=== PATIENT | female | born 1990 | race Caucasian/White ===

== ENCOUNTER → 2018-10-01 09:06 | Outpatient (CLI) | payer OTHER, MEDICAID, SELFPAY ==
--- NOTE | 2018-10-01 | DI.US.S_ITS ---
PROCEDURE: US PELVIC COMPLETE INDICATIONS: PELVIC PAIN/HISTORY OF OVARIAN CYSTS TECHNIQUE: Real-time scanning was performed of the pelvic organs, with image documentation. Additional endovaginal scanning was necessary due to incomplete visualization of the adnexal and endometrial structures by transabdominal scanning. COMPARISON: [facility], , PELVIC COMPLETE, 10/15/2012, 12:30. FINDINGS: Transabdominal scanning: Limited scanning through the kidneys shows no hydronephrosis. No pathologic free abdominal or pelvic fluid. Endovaginal scanning: Uterus: Uterus is normal in size at 8.2 x 5.1 x 5.6 cm. The endometrium measures 6.3 mm in combined thickness. Ovaries: Normal ovaries measuring 2.0 x 3.3 x 2.2 cm on the right and 3.3 x 2.4 x 2.8 cm on the left. No adnexal masses seen. IMPRESSION: No source for pelvic pain identified. Dictated by: Efrain LOBO Interpreted: Tobi Cancino MD on 10/01/2018 at 10:33 Approved by: Tobi Cancino M.D. on 10/01/2018 at 16:36
== END ==
PROVIDERS: Visit Provider Physician Assistant
DX: R10.2 Pelvic and perineal pain (principal)
CPT/HCPCS: 76830; 76856

== ENCOUNTER 2019-07-02 15:41 | Emergency (ER) | payer OTHER, MEDICAID, SELFPAY ==
[2019-07-02 15:50] VITALS: BP 138/84; PULSE 104; RESP 20; TEMP 37.4; O2SAT 100
[2019-07-02 16:37] LABS: Bacteria Urine Few (2-10); Culture Indicated Urine Specimen Cultured; RBC Urine 10-30/HPF (0-5/HPF); Squamous Epithelial Cell Urine 1-5 /HPF (0-5/HPF); Transitional Epi Cells Urine 1-5/HPF (0-5/HPF); WBC Urine 30-100/HPF (0-5/HPF)
--- NOTE | 2019-07-02 16:40 | ED.FEMALEGU ---
HPI - Female Genitourinary General Chief complaint: Urogenital-Female Stated complaint: Kidney infection Time Seen by Provider: 07/02/19 16:38 Source: patient Mode of arrival: ambulatory Limitations: no limitations History of Present Illness HPI Narrative: This is a 29-year-old female who comes in with complaint of kidney infection. Patient states she started having urinary frequency urgency and dysuria as well as a little bit of flank pain. Patient has had not documented fevers but felt warm and sweaty. She has had vomiting or nausea. She has had some loose stools but no black or blood. She denies any vaginal bleeding or discharge. She has noted hematuria. Patient had urine collected on [facility] which was sent for culture. The culture has not resulted but the urine was suspicious for infection. She was given a prescription for ciprofloxacin. She has not started it secondary to concern about allergies although she is not allergic to fluoroquinolones. She has a penicillin, sulfa allergy and the allergy to Macrobid. She describes penicillin allergy as hives and angioedema slip as hives and Macrobid she does not recall exactly. She denies any other major medical issues or surgeries. She has seen a urologist once before, was told she can try azo intermittently. She states that her urine cultures often come back negative. Related Data Allergies Allergy/AdvReac Type Severity Reaction Status Date / Time Penicillins Allergy Unknown Verified 07/02/19 16:24 SULFA (sulfonamide) Allergy Unknown Uncoded 02/06/18 11:56 Review of Systems Review of Systems ROS Unobtainable: All systems reviewed & are unremarkable except as noted in HPI and below PFSH Social History Smoking Status: Current every day smoker Social History Smoking Status: Current every day smoker Exam Narrative Exam Narrative: GENERAL: Alert and oriented x three, well-nourished, well-appearing female in mild distress. HEENT: Head normocephalic, atraumatic, EOMI, pupils reactive, face symmetric, moist mucous membranes NECK: Supple, full range of motion CARDIOVASCULAR: Regular rate and rhythm without murmurs, rubs or gallops. RESPIRATORY: Breath sounds equal bilaterally, no wheezes rales or rhonchi. ABDOMEN: Soft, nontender. Normoactive bowel sounds all 4 quadrants. No guarding or rebound, rigidity, no mass : No CVA tenderness EXTREMITIES: Normal range of motion, no clubbing or edema. Neurovascularly intact NEUROLOGICAL: Cranial nerves II through XII grossly intact. Moving all extremities SKIN: Warm, dry, no petechiae, no rashes or lesions. Initial Vital Signs Initial Vital Signs: Vital Signs Temperature 99.4 F 07/02/19 15:50 Pulse Rate 104 H 07/02/19 15:50 Respiratory Rate 20 07/02/19 15:50 Blood Pressure 138/84 07/02/19 15:50 Pulse Oximetry 100 07/02/19 15:50 Course Orders Ordered: ED Orders 07/02/19 16:25 Urine Culture Stat Urine Microscopic Stat Vital Signs Vital signs: Vital Signs - 8 hr 07/02/19 15:50 07/02/19 18:18 Temperature 99.4 F Pulse Rate 104 H 82 Respiratory Rate 20 16 Blood Pressure 138/84 Blood Pressure [Left Arm] 128/82 Pulse Oximetry 100 99 MDM - Female Genitourinary Lab Data Attestation: I reviewed the patient's lab results. Labs: Lab Results 07/02/19 Range/Units 16:25 Urine RBC 10-30/hpf H (0-5/HPF) Urine WBC 30-100/hpf H (0-5/HPF) Ur Squamous Epith Cells 1-5 /hpf (0-5/HPF) Ur Transition Epith Cell 1-5/hpf (0-5/HPF) Urine Bacteria Few (2-10) H (None) Ur Culture Indicated? Specimen cultured Point of Care Testing Test Results Negative Urine Dip Bedside Urine Glucose Negative Bedside Urine Bilirubin - Negative Bedside Urine Ketone - Negative Urine Specific [place] 1.015 Bedside Urine Occult Blood - Negative Bedside Urine pH 6.0 Bedside Urine Protein +/- 15 Bedside Urine Urobilinogen - Negative Bedside Urine Nitrite - Negative Bedside Urine Leukocytes ++ 125 Esterase MDM Narrative Medical decision making narrative: Discussed with patient we discussed trying cephalexin but with her allergy we discussed there is a very small risk of cross reactivity and her description of angioedema. Patient and I discussed doing a dose of Cipro here will monitor her for an hour does agree on time with the patient that she feels comfortable waiting and patient can follow up with primary care. Cultures pending for us as well. Her primary care sore has not resulted yet. Patient continues to be asymptomatic, d/c home Discharge Plan Departure Patient Disposition: Home Clinical Impression: Urinary tract infection Instructions: DI for Urinary Tract Infection (UTI) Activity Restrictions/Additional Instructions: Follow-up with your primary care physician regarding your urine culture. I would recommend continuing antibiotics you have been prescribed until they are gone. Return to the emergency department for fevers greater than 100.4 F, rapidly worsening symptoms, persistent vomiting, increasing flank or abdominal pain, black or bloody stools or other new or concerning symptoms. Referrals: Lashell Pearl PA-C [Primary Care Provider] -
[2019-07-02 18:18] VITALS: BP 128/82; PULSE 82; RESP 16; O2SAT 99
--- NOTE | 2019-07-02 18:19 | PC.NURSE ---
pt took her antibiotic at 6pm.
[2019-07-02 19:23] VITALS: BP 121/80; PULSE 70; RESP 16; TEMP 36.7; O2SAT 99
== END 2019-07-02 19:23 | disposition home or self-care (01) ==
PROVIDERS: Emergency Provider Emergency Medicine; PCP Physician Assistant
DX: N39.0 Urinary tract infection, site not specified (principal)
CPT/HCPCS: 81003; 81015; 81025; 87086; 99282

== ENCOUNTER 2019-12-24 18:46 | Emergency (ER) | payer OTHER, MEDICAID, SELFPAY ==
[2019-12-24 18:49] VITALS: BP 122/72; PULSE 96; RESP 14; TEMP 36.8; O2SAT 99; BMI 22.6
--- NOTE | 2019-12-24 19:21 | ED_ITS ---
HPI - Recheck/Abnormal Lab/Rx General Chief Complaint: Recheck/Abnormal Lab/Rx Stated Complaint: sent by Ethel for antibiotics Time Seen by Provider: 12/24/19 19:21 Source: patient Mode of arrival: Ambulatory History of Present Illness HPI narrative: 29-year-old woman with no additional significant medical history however multiple allergies to antibiotics. Presented to [facility] earlier today complaining of fevers and chills starting Cristopher with increasing right flank pain and increasing difficulty in feeling that she is voiding completely. No vaginal discharge, no new sexual partners, no hematuria. Slight decreased appetite but she is not having vomiting or diarrhea. At the clinic a urinalysis was apparently done and they told her she had a bladder infection and suggested that she come to the [facility] for a shot of ceftriaxone in a structured environment should she have an allergic reaction. On further questioning I am concerned that she may actually simply have influenza and not need antibiotics at all, she may have a kidney stone she may have pyelonephritis and the longer course of antibiotics and a single dose in the emergency room. Like to do a more thorough evaluation and patient agrees. Related Data Allergies Allergy/AdvReac Type Severity Reaction Status Date / Time Penicillins Allergy Unknown Verified 12/24/19 18:49 amoxicillin Allergy Verified 12/24/19 18:49 clindamycin Allergy Verified 12/24/19 18:49 erythromycin base Allergy Verified 12/24/19 18:49 nitrofurantoin Allergy Verified 12/24/19 18:49 [From Macrobid] SULFA (sulfonamide) Allergy Unknown Uncoded 02/06/18 11:56 Review of Systems Review of Systems Narrative: All systems reviewed and are unremarkable except as noted in HPI and below Patient History Social History Smoking Status: Current every day smoker Smoking Status: Current every day smoker alcohol intake frequency: holidays/special occasions only Substance Use Type: does not use Exam Narrative Exam Narrative: General: Healthy appearing, in no acute distress. Anxious but able to give a complete and coherent history. Well-nourished well-developed HEENT: Moist mucous membranes, normal sclera with reactive pupils, Neck: No JVD, supple Respiratory: Lungs are clear to auscultation, no wheezing no rales no rhonchi. Full and symmetrical air movement Cardiac: Regular rate and rhythm no murmurs no bruits Abdomen: Soft nontender good bowel tones, no rebound or guarding, no suprapubic tenderness mild right-sided flank pain Skin: Warm and dry, no rashes Neurologic: Grossly neurologically intact with no obvious asymmetries or abnormalities Extremities: No trauma, well perfused Psych: Cooperative, appropriate insight and affect Initial Vital Signs Initial Vital Signs: Vital Signs Temperature 98.3 F 12/24/19 18:49 Pulse Rate 96 H 12/24/19 18:49 Respiratory Rate 14 12/24/19 18:49 Blood Pressure 122/72 12/24/19 18:49 Pulse Oximetry 99 12/24/19 18:49 Course Orders Ordered: ED Orders 12/24/19 19:45 Complete Blood Count AUTO DIFF Stat Comprehensive Metabolic Panel Stat Lactate (Lactic Acid) Stat 12/24/19 19:49 Urinalysis and Microscopic Stat 12/24/19 20:06 Blood Culture Stat Discontinued Medications Sodium Chloride (Normal Saline 0.9%) 1,000 mls @ 1,000 mls/hr IV BOLUS ONE Stop: 12/24/19 20:31 Last Infusion: 12/24/19 20:45 Dose: 1,000 mls/hr Documented by: Admin: 12/24/19 19:40 Dose: 1,000 mls/hr Documented by: BENITO Ceftriaxone Sodium/Dextrose (Rocephin) 2 gm in 50 mls @ 100 mls/hr IV NOW ONE Stop: 12/24/19 21:58 Last Infusion: 12/24/19 22:00 Dose: 100 mls/hr Documented by: Admin: 12/24/19 21:33 Dose: 100 mls/hr Documented by: BENITO Ketorolac Tromethamine (Toradol) 15 mg IV NOW ONE Stop: 12/24/19 19:33 Last Admin: 12/24/19 19:50 Dose: 15 mg Documented by: BENITO Vital Signs Vital signs: Vital Signs - 8 hr 12/24/19 18:49 12/24/19 21:45 12/24/19 23:15 Temperature 98.3 F 98.4 F Pulse Rate 96 H 76 72 Respiratory Rate 14 17 17 Blood Pressure 122/72 Blood Pressure [Left Arm] 106/56 L 116/75 Pulse Oximetry 99 98 100 MDM - Recheck/Abnormal Lab/Rx Medical Records Attestation: I reviewed the patient's medical records. Lab Data Attestation: I reviewed the patient's lab results. Result diagrams: 12/24/19 19:45 12/24/19 19:45 Labs: Lab Results 12/24/19 12/24/19 12/24/19 Range/Units 19:45 19:45 19:45 WBC 7.4 (4.5-11.0) X10^3/uL RBC 3.91 L (4.0-5.2) X10^6/uL Hgb 11.8 L (12.0-16.0) g/dL Hct 34.3 L (36-46) % MCV 87.8 (80-100) fL MCH 30.3 (26-34) PG MCHC 34.5 (30-36) % RDW 12.8 (11.6-14.8) % Plt Count 393 (150-400) X10^3/uL Neut % (Auto) 61.1 (50-75) % Lymph % (Auto) 26.2 (25-40) % [place] % (Auto) 9.6 (3-14) % Eos % (Auto) 2.3 (2-4) % Baso % (Auto) 0.8 (0-2) % Neut # (Auto) 4500 (8745-4101) /uL Lymph # (Auto) 1900 (8208-3171) /uL [place] # (Auto) 700 (0-900) /uL Eos # (Auto) 200 (0-450) /uL Baso # (Auto) 100 (0-100) /uL Sodium 140 (137-145) mmol/L Potassium 3.2 L (3.4-5.1) mmol/L Chloride 101 (98-107) mmol/L Carbon Dioxide 28 (22-32) mmol/L BUN 10 (7-17) mg/dL Creatinine 0.60 (0.52-1.04) mg/dL Estimated GFR > 60.0 (>60) mL/min BUN/Creatinine Ratio 16.7 (6-22) Glucose 130 H (70-100) mg/dL Lactate 1.6 (0.7-2.1) mmol/L Calcium 9.7 (8.4-10.2) mg/dL Total Bilirubin 0.2 (0.2-1.3) mg/dL AST 28 (14-36) IU/L ALT 37 H (<35) IU/L Alkaline Phosphatase 71 (38-126) U/L Total Protein 8.0 (6.3-8.2) g/dL Albumin 4.2 (3.5-5.0) g/dL Globulin 3.8 (1.7-4.1) g/dL Albumin/Globulin Ratio 1.1 (1.0-2.8) Urine Color Urine Appearance Urine pH (4.5-8.0) Ur Specific [place] (1.000-1.035) Urine Protein (Negative) Urine Glucose (UA) (Negative) g/dL Urine Ketones (NEGATIVE) Urine Occult Blood (Negative) Urine Nitrate (Negative) Urine Bilirubin (NEGATIVE) Urine Urobilinogen (0.2) E.U./dL Ur Leukocyte Esterase (NEGATIVE) Urine RBC (0-5/HPF) Urine WBC (0-5/HPF) Ur Squamous Epith Cells (0-5/HPF) Urine Bacteria (None) Ur Culture Indicated? 12/24/19 Range/Units 19:49 WBC (4.5-11.0) X10^3/uL RBC (4.0-5.2) X10^6/uL Hgb (12.0-16.0) g/dL Hct (36-46) % MCV (80-100) fL MCH (26-34) PG MCHC (30-36) % RDW (11.6-14.8) % Plt Count (150-400) X10^3/uL Neut % (Auto) (50-75) % Lymph % (Auto) (25-40) % [place] % (Auto) (3-14) % Eos % (Auto) (2-4) % Baso % (Auto) (0-2) % Neut # (Auto) (4489-7040) /uL Lymph # (Auto) (5201-1654) /uL [place] # (Auto) (0-900) /uL Eos # (Auto) (0-450) /uL Baso # (Auto) (0-100) /uL Sodium (137-145) mmol/L Potassium (3.4-5.1) mmol/L Chloride (98-107) mmol/L Carbon Dioxide (22-32) mmol/L BUN (7-17) mg/dL Creatinine (0.52-1.04) mg/dL Estimated GFR (>60) mL/min BUN/Creatinine Ratio (6-22) Glucose (70-100) mg/dL Lactate (0.7-2.1) mmol/L Calcium (8.4-10.2) mg/dL Total Bilirubin (0.2-1.3) mg/dL AST (14-36) IU/L ALT (<35) IU/L Alkaline Phosphatase (38-126) U/L Total Protein (6.3-8.2) g/dL Albumin (3.5-5.0) g/dL Globulin (1.7-4.1) g/dL Albumin/Globulin Ratio (1.0-2.8) Urine Color Yellow Urine Appearance Sl cloudy Urine pH 5.5 (4.5-8.0) Ur Specific [place] 1.015 (1.000-1.035) Urine Protein Negative (Negative) Urine Glucose (UA) Negative (Negative) g/dL Urine Ketones Negative (NEGATIVE) Urine Occult Blood 1+ H (Negative) Urine Nitrate Positive H (Negative) Urine Bilirubin Negative (NEGATIVE) Urine Urobilinogen 0.2 (0.2) E.U./dL Ur Leukocyte Esterase 2+ H (NEGATIVE) Urine RBC 5-10/hpf H (0-5/HPF) Urine WBC 10-30/hpf H (0-5/HPF) Ur Squamous Epith Cells 5-10 /hpf H (0-5/HPF) Urine Bacteria Many (>30) H (None) Ur Culture Indicated? Cult not indicated MDM Narrative Medical decision making narrative: No signs of severe systemic infection. Will give her a dose of oral potassium for the slightly low potassium. Urine does in fact look like a UTI. Will treat with 2 g of IV ceftriaxone and monitor for at least an hour after treatment make sure she has no adverse effects from the antibiotics. Discharge Plan Departure Patient Disposition: Home Clinical Impression: UTI (urinary tract infection) Qualifiers: Urinary tract infection type: site unspecified Hematuria presence: with hematuria Qualified Code(s): N39.0 - Urinary tract infection, site not specified Instructions: DI for Urinary Tract Infection (UTI) Activity Restrictions/Additional Instructions: Thank you for coming in today Your symptoms and presentation were concerning. Your blood tests were quite reassuring. There is no evidence of systemic (body wide) infection, kidney problems or electrolyte abnormalities. You did receive 2 g of IV ceftriaxone and antibiotic in the cephalosporin family to treat what does look like of bladder infection. We were able to observe you for an hour after the antibiotic has infused and we did not see any signs or symptoms of an allergic reaction. Typically this single dose of antibiotic will be effective in treating an uncomplicated bladder infection. We will culture your urine and you will be contacted there are additional findings. I hope you feel better soon Referrals: Lashell Pearl PA-C [Primary Care Provider] -
[2019-12-24] MEDS: SODIUM CHLORIDE 0.9% 1,000 ML 1000 ML IV (19:40)
[2019-12-24] MEDS: KETOROLAC 60 MG/2 ML VIAL 15 MG IV (19:50)
[2019-12-24 19:57] LABS: Add Manual Diff / Slide Review NO; Basophils Absolute Auto 100 /uL (0-100); Basophils Percent Auto 0.8 % (0-2); Eosinophils Absolute Auto 200 /uL (0-450); Eosinophils Percent Auto 2.3 % (2-4); Hematocrit 34.3 % (36-46); Hemoglobin 11.8 g/dL (12.0-16.0); Lymphocytes Absolute Auto 1900 /uL (1100-4500); Lymphocytes Percent Auto 26.2 % (25-40); Mean Corpuscular HGB Conc 34.5 % (30-36); Mean Corpuscular Hemoglobin 30.3 PG (26-34); Mean Corpuscular Volume 87.8 fL (80-100); Monocytes Absolute Auto 700 /uL (0-900); Monocytes Percent Auto 9.6 % (3-14); Neutrophils Absolute Auto 4500 /uL (1500-7000); Neutrophils Percent Auto 61.1 % (50-75); Platelet Count 393 X10^3/uL (150-400); Red Blood Cell Count 3.91 X10^6/uL (4.0-5.2); Red Cell Distribution Width 12.8 % (11.6-14.8); White Blood Cell Count 7.4 X10^3/uL (4.5-11.0)
[2019-12-24 20:01] LABS: Appearance Urine UA SL CLOUDY; Bilirubin Urine UA NEGATIVE (NEGATIVE); Color Urine UA YELLOW; Glucose Urine UA NEGATIVE (Negative); Ketones Urine UA NEGATIVE (NEGATIVE); Leukocyte Esterase Urine UA 2+ (NEGATIVE); Nitrite Urine UA POSITIVE (Negative); Occult Blood Urine UA 1+ (Negative); Protein Urine UA NEGATIVE (Negative); Specific Gravity Urine UA 1.015 (1.000-1.035); Urobilinogen Urine UA 0.2 E.U./dL (0.2)
[2019-12-24 20:03] LABS: pH Urine UA 5.5 (4.5-8.0)
[2019-12-24 20:06] LABS: Bacteria Urine Many (>30); RBC Urine 5-10/HPF (0-5/HPF); Squamous Epithelial Cell Urine 5-10 /HPF (0-5/HPF); WBC Urine 10-30/HPF (0-5/HPF)
[2019-12-24 20:07] LABS: Culture Indicated Urine Cult Not Indicated
[2019-12-24 20:09] LABS: Alanine Aminotransferase 37 IU/L (<35); Albumin 4.2 g/dL (3.5-5.0); Albumin Globulin Ratio 1.1 (1.0-2.8); Alkaline Phosphatase 71 U/L (38-126); Aspartate Aminotransferase 28 IU/L (14-36); BUN Creatinine Ratio 16.7 (6-22); Bilirubin Total 0.2 mg/dL (0.2-1.3); Blood Urea Nitrogen 10 mg/dL (7-17); Calcium 9.7 mg/dL (8.4-10.2); Carbon Dioxide 28 mmol/L (22-32); Chloride 101 mmol/L (98-107); Estimated Glomerular Filt Rate > 60.0 mL/min (>60); Globulin 3.8 g/dL (1.7-4.1); Glucose 130 mg/dL (70-100); HEMOLYSIS < 15 (0-50); Lactate (Lactic Acid) 1.6 mmol/L (0.7-2.1); Potassium 3.2 mmol/L (3.4-5.1); Sodium 140 mmol/L (137-145)
[2019-12-24] MEDS: CEFTRIAXONE 2 GM/50 ML FROZ.PIGGY IV (21:33)
[2019-12-24 21:45] VITALS: BP 106/56; PULSE 76; RESP 17; TEMP 36.9; O2SAT 98
[2019-12-24 23:15] VITALS: BP 116/75; PULSE 72; RESP 17; O2SAT 100
--- NOTE | 2019-12-24 23:15 | PC.NURSE ---
Pt [employer] light upset stating to [employer] she needs to leave immediately to find her ride that was suppose to be here. PT was updated that staff in ER is not aware of any ride or visitor that has requested for pt since her arrival. Dr dick and printing DC paperwork for pt.
== END 2019-12-24 23:18 | disposition home or self-care (01) ==
PROVIDERS: Emergency Provider Emergency Medicine; PCP Physician Assistant
DX: N39.0 Urinary tract infection, site not specified (principal)
CPT/HCPCS: 36415; 80053; 81001; 83605; 85025; 87040; 96361; 96365; 96375; 99284; J0696; J1885

== ENCOUNTER 2021-05-11 22:37 | Emergency (ER) | payer OTHER, MEDICAID, SELFPAY ==
[2021-05-11 22:53] VITALS: BMI 23.3
--- NOTE | 2021-05-11 23:06 | ED_ITS ---
HPI - General Chief complaint: OB/Uterine Contractions Stated complaint: possible miscarriage Time Seen by Provider: 05/11/21 22:53 Source: patient Mode of arrival: Ambulatory Limitations: no limitations History of Present Illness HPI Narrative: 31-year-old female daily smoker is a at 12 weeks and pre sents at the request of her [facility] due to a day or 2 of mild vaginal spotting. She is known to be Rh negative and will need a RhoGAM shot. She has minimal lower cramping but no significant pain. She does not have an OB provider. She is not dizzy nor weak or lightheaded. She denies any chest pain or shortness of breath. She denies dysuria, frequency or urgency Related Data Allergies Allergy/AdvReac Type Severity Reaction Status Date / Time Penicillins Allergy Unknown Verified 05/11/21 22:53 amoxicillin Allergy Verified 05/11/21 22:53 clindamycin Allergy Verified 05/11/21 22:53 erythromycin base Allergy Verified 05/11/21 22:53 nitrofurantoin Allergy Verified 05/11/21 22:53 [From Macrobid] SULFA (sulfonamide) Allergy Unknown Uncoded 05/11/21 22:53 Review of Systems Review of Systems Narrative: GENERAL: Denies chills, fatigue, malaise, fever, sweats. HEENT: Denies sinus pain, ear pain, sore throat, difficulty swallowing, dizziness. RESPIRATORY: Denies dyspnea, cough, wheezing, hemoptysis, sputum. CARDIOVASCULAR: Denies chest pain, palpitations, orthopnea, edema, GASTROINTESTINAL: See HPI : Denies dysuria, frequency, incontinence, hematuria, urinary retention. MUSCULOSKELETAL: denies weakness, joint pain, or bony pain SKIN: Denies rash, skin lesions, or other NEUROLOGIC: Denies weakness, headache, numbness, change in speech, confusion, seizures, incoordination. PSYCHIATRIC: No concerning psychosocial issues. 12 point review of systems is negative except for those stated above Exam Narrative Exam Narrative: GEN: AOx3 and in mild distress EYES: Pupils are equal, round, and reactive to light and accommodation. Extraoccular muscles are intact bilaterally. There is no subconjunctival hemorrhage or exudate. CHEST: Lungs are clear to auscultation bilaterally and free of wheezes, rales, or rhonchi. Heart rate is regular rhythm, there are no murmurs, clicks, rubs, or gallops. There is no chest wall tenderness. ABD: Abdomen is soft and nontender. There is no guarding or rebound. Bowel sounds are normal in all 4 quadrants. There is no mass or organomegaly. EXT: Full painless ROM of all extremities with no loss of sensation or strength. SKIN: Warm, pink, and dry. No erythema or rash Initial Vital Signs Initial Vital Signs: Vital Signs Pulse Rate 82 05/12/21 01:48 Respiratory Rate 20 05/12/21 01:48 Blood Pressure 109/66 05/12/21 01:48 Pulse Oximetry 100 05/12/21 01:48 Course Orders Ordered: ED Orders 05/11/21 23:07 US OB <= 14 weeks fetus Stat 05/11/21 23:10 ABO RH Type Stat HCG Quantitative /Beta subunit Stat Hemoglobin and Hematocrit Stat Discontinued Medications Rho Immune Globulin (Rho(D) Immune Globulin 1,500 Unit Syringe) 1,500 unit IM NOW ONE Stop: 05/12/21 00:25 Last Admin: 05/12/21 01:13 Dose: 1,500 unit Documented by: JYOTI Vital Signs Vital signs: Vital Signs - 8 hr 05/12/21 01:48 Pulse Rate 82 Respiratory Rate 20 Blood Pressure 109/66 Pulse Oximetry 100 MDM - OB/Uterine Contractions Lab Data Result diagrams: 05/11/21 23:10 Labs: Lab Results 05/11/21 05/11/21 05/11/21 Range/Units 23:10 23:10 23:10 Hgb 12.0 (12.0-16.0) g/dL Hct 35.8 L (36-46) % HCG, Quant 32550 mIU/mL Blood Type A Negative Urine Dip Bedside Urine Glucose Negative Bedside Urine Bilirubin - Negative Bedside Urine Ketone - Negative Urine Specific [place] 1.025 Bedside Urine Occult Blood + Bedside Urine pH 6.0 Bedside Urine Protein - Negative Bedside Urine Urobilinogen - Negative Bedside Urine Nitrite - Negative Bedside Urine Leukocytes - Negative Esterase Imaging Data US - OB: Radiologist's Impression: Single live IUP at 12 weeks and 5 days. Cardiac activity at 155 beats per minute. Normal posterior placenta. MDM Narrative Medical decision making narrative: Patient with minimal bleeding and mild cramping with stable vital signs in very reassuring physical exam. Ultrasound notes intrauterine with heart rate in the 150s. Patient is Rh negative and has been given RhoGAM. She is given return precautions and had questions answered to her apparent satisfaction Discharge Plan Departure Patient Disposition: Home Clinical Impression: Vaginal bleeding in Instructions: Threatened Miscarriage Activity Restrictions/Additional Instructions: *You have been diagnosed with [vaginal bleeding, RhoGAM administration and reas suring ultrasound.] *What to do: *Please continue to take your regular medications as directed. [ ] New medication prescriptions sent to your pharmacy: [ ] [ ] New medication written as a paper prescription [x ] No new medications given *Please follow up with your primary care provider in 2-3 days, call for an appointment. Let them know you were seen in the Emergency Department and that we ask that you be seen in follow up. We will electronically transmit a record of today's note if your PCP is in our system *If you do not have a primary care provider please contact the [facility] Resource line at [phone]. They will ask some questions about your medical history and help get you set up with a doctor in the community. *Return to Emergency Department if you should have any new, worsening or concerning symptoms, such as [fever greater than 101 F, shaking chills, worsening pain, persistent vomiting or other bothersome symptoms] Referrals: Adelaide Potter MD [Physician] - Lashell Pearl PA-C [Primary Care Provider] -
--- NOTE | 2021-05-11 23:07 | DI.US.S_ITS ---
PROCEDURE: US OB <= 14 WEEKS FETUS INDICATIONS: BLEEDING OUTSIDE/PRIOR DATING DATA: Last menstrual period (LMP): February 14, 2021 LMP-based estimated date of delivery (SEN): November 21, 2021 First dating scan (date and location): May 11, 2021 Estimated date of delivery (SEN) from first dating scan: November 18, 2021 TECHNIQUE: Real-time scanning was performed of the fetus and maternal pelvic organs, with image documentation. Endovaginal scanning was also performed to better visualize the fetus and maternal ovaries. COMPARISON: None. FINDINGS: Embryo: Single living intrauterine identified. pole identified. [place]-rump length measures 6.4 centimeters corresponding to ultrasound estimated gestational age of 12 weeks 5 days. Heart rate: 155 beats per minute. Measurement variability in dating: +/- 4 weeks by LMP, +/- 7 days by mean sac diameter (use before 6 weeks gestation if crown-rump length not able to be measured), +/- 5 days by crown-rump length (up to 8 weeks 6 days gestation), +/- 7 days by crown-rump length (up to 13 weeks 6 days gestation). Maternal organs: Ovaries not identified and cannot be evaluated.. IMPRESSION: Single living intrauterine gestation with ultrasound estimated gestational age of 12 weeks 5 days corresponding to ultrasound SEN of November 18, 2021. Dictated by: Sarah Campa MD, PhD on 05/12/2021 at 8:29 Approved by: Sarah Campa MD, PhD on 05/12/2021 at 8:30
[2021-05-11 23:24] LABS: Hematocrit 35.8 % (36-46)
[2021-05-12 00:15] LABS: HCG Quantitative /Beta subunit 20422 mIU/mL
[2021-05-12] MEDS: RHO(D) IMMUNE GLOBULIN 1,500 UNIT SYRINGE 1500 UNIT IM (01:13)
[2021-05-12 01:48] VITALS: BP 109/66; PULSE 82; RESP 20; O2SAT 100
== END 2021-05-12 01:54 | disposition home or self-care (01) ==
PROVIDERS: Emergency Provider Emergency Medicine; PCP Physician Assistant
DX: O46.91 Antepartum hemorrhage, unspecified, first trimester (principal); Z3A.12 12 weeks gestation of pregnancy
CPT/HCPCS: 76801; 81003; 84702; 85014; 85018; 86900; 86901; 96372; 99283; 99284; J2790

== ENCOUNTER → 2021-05-30 09:03 | Outpatient (CLI) | payer OTHER, MEDICAID, SELFPAY ==
[2021-05-30 10:06] LABS: Appearance Urine UA CLEAR; Bilirubin Urine UA NEGATIVE (NEGATIVE); Color Urine UA YELLOW; Glucose Urine UA NEGATIVE (Negative); Ketones Urine UA NEGATIVE (NEGATIVE); Leukocyte Esterase Urine UA NEGATIVE (NEGATIVE); Nitrite Urine UA NEGATIVE (Negative); Occult Blood Urine UA TRACE-INTACT (Negative); Protein Urine UA NEGATIVE (Negative); Urobilinogen Urine UA 0.2 E.U./dL (0.2)
[2021-05-30 10:12] LABS: Add Manual Diff / Slide Review NO; Basophils Absolute Auto 100 /uL (0-100); Basophils Percent Auto 0.4 % (0-2); Eosinophils Absolute Auto 200 /uL (0-450); Eosinophils Percent Auto 1.5 % (2-4); Hematocrit 36.9 % (36-46); Hemoglobin 12.5 g/dL (12.0-16.0); Lymphocytes Absolute Auto 2600 /uL (1100-4500); Lymphocytes Percent Auto 18.3 % (25-40); Mean Corpuscular HGB Conc 33.8 % (30-36); Mean Corpuscular Volume 88.7 fL (80-100); Monocytes Absolute Auto 900 /uL (0-900); Monocytes Percent Auto 6.3 % (3-14); Neutrophils Absolute Auto 10500 /uL (1500-7000); Neutrophils Percent Auto 73.5 % (50-75); Platelet Count 297 X10^3/uL (150-400); Red Blood Cell Count 4.16 X10^6/uL (4.0-5.2); Red Cell Distribution Width 13.4 % (11.6-14.8); White Blood Cell Count 14.4 X10^3/uL (4.5-11.0)
[2021-05-30 16:40] LABS: Hepatitis B Surface Antigen NEGATIVE s/c (NEGATIVE); Rubella Antibody IgG 16.9 IU/mL (>15)
[2021-05-30 16:59] LABS: HIV 1 & 2 Ab/Ag 4th Gen Combo NEGATIVE (NEGATIVE); Hep C Virus Ab w/Reflex Quant NEGATIVE s/c (NEGATIVE)
[2021-05-31 05:37] LABS: RPR Screen Non Reactive (Non Reactive)
[2021-05-31 12:46] LABS: Varicella IgG Antibody 1322 index (Immune >165)
== END ==
PROVIDERS: PCP Physician Assistant; Referring Provider Obstetrics & Gynecology; Visit Provider Obstetrics & Gynecology
DX: Z34.82 Encounter for supervision of other normal pregnancy, second trimester (principal)
CPT/HCPCS: 36415; 80055; 81003; 86787; 86803; 86850; 86870; 86900; 86901; 87077; 87086; 87186; 87389

== ENCOUNTER → 2021-06-06 10:04 | Outpatient (CLI) | payer OTHER, MEDICAID, SELFPAY ==
[2021-06-09 20:49] LABS: AFP, Serum 46.9 ng/mL (.); Inhibin A, Dimeric 159.92 pg/mL (.); Inhibin A, MoM 1.01 (.); Maternal Ethnicity Caucasian (.); Maternal Weight 151 lbs (.); Number of Fetuses No (.); OSBR Risk 1 IN 3920 (.); Results Report (.); Test Results *Screen Negative* (.); hCG, MoM 0.25 (.); hCG, Serum 10134 mIU/mL (.)
== END ==
PROVIDERS: PCP Physician Assistant; Visit Provider Obstetrics & Gynecology
DX: Z34.82 Encounter for supervision of other normal pregnancy, second trimester (principal); Z3A.16 16 weeks gestation of pregnancy
CPT/HCPCS: 82105; 82677; 84702; 86336

== ENCOUNTER → 2021-07-25 12:51 | Outpatient (CLI) | payer OTHER, MEDICAID, SELFPAY ==
--- NOTE | 2021-07-25 12:52 | DI.US.S_ITS ---
PROCEDURE: US OB >= 14 WEEKS FETUS INDICATIONS: ANATOMY OUTSIDE/PRIOR DATING DATA: Last menstrual period (LMP): 02/14/2021. LMP-based estimated date of delivery (SEN): 11/21/2021. First dating scan (date and location): 05/11/2021. Estimated date of delivery (SEN) from first dating scan: 11/18/2021. TECHNIQUE: Real-time scanning was performed of the fetus, with image documentation and biometric measurements. E COMPARISON: [facility], , OB >= 14 WEEKS FETUS, 06/27/2021, 15:48. FINDINGS: General: A single living intrauterine gestation is present. Presentation: Vertex Placenta: Placental position is posterior, without previa. Amniotic fluid index: 5.9 cm, normal range is 5-24 cm. heart rate: 152 beats per minute. Maternal cervical canal: 3.6 cm long. Normal lower limit is 2.5 cm. biometrics: Biparietal diameter: 5.3 cm, 22 weeks, 5 days Head circumference: 20.8 cm, 22 weeks, 6 days Abdominal circumference: 18.1 cm, 23 weeks, 0 day Femur length: 4.2 cm, 23 weeks, 6 days Estimated gestational age from initial scan: 23 weeks, 3 days Composite gestational age from present scan: 23 weeks, 1 day Estimated weight and percentile: 580 grams, 35 percent Measurement variability for biometric dating: +/- 7 days from 14 weeks to 15 weeks 6 days gestation, +/- 10 days from 16 weeks to 21 weeks 6 days gestation, +/- 2 weeks from 22 weeks to 27 weeks 6 days gestation, +/- 3 weeks for 28 weeks gestation or later. weight reference: 4500 g or EFW >90/95% is considered macrosomia or large for gestational age. EFW <10% is small for gestational age. EFW 5% or less is considered intra-uterine growth restriction. Anatomic survey: Neuro: Ventricles and choroid plexus are not well seen. Cerebellum is normal in size and morphology. Nuchal skin fold: Normal at less than 6 mm between 14-21 weeks gestational age. Face: Nose and lips, facial profile are not well seen. Spine: Not well seen. Heart: 4-chambered heart is present, with normal ventricular outflow tracts. Diaphragm: Diaphragm is intact. Stomach: Left-sided stomach is present. Kidneys: Mild prominence of left renal pelvis is seen measures 4.3 mm in diameter. No right-sided hydronephrosis. Normal is less than 5 mm in 2nd trimester, less than 7 mm in 3rd trimester. Cord: 3-vessel cord has orthotopic insertion. Bladder: Normal in size. Extremities: All 4 extremities identified. IMPRESSION: 1. Single live intrauterine with fetus in vertex presentation. heart rate is 152 beats per minute. 2. Amniotic fluid index is near the lower limits of normal at 5.9 cm. Estimated weight is at 35 percent. 3. Ventricles and choroid plexus are not well seen. Facial profile is not well seen. spine is not well seen. 4. Slight prominence of left renal pelvis as above which is still within the normal limits. No right-sided hydronephrosis. Dictated by: Pavel Zheng M.D. on 07/26/2021 at 13:53 Approved by: Pavel Zheng M.D. on 07/26/2021 at 13:56
== END ==
PROVIDERS: PCP Physician Assistant; Referring Provider Obstetrics & Gynecology; Visit Provider Obstetrics & Gynecology
DX: Z34.82 Encounter for supervision of other normal pregnancy, second trimester (principal); Z3A.23 23 weeks gestation of pregnancy
CPT/HCPCS: 76811

== ENCOUNTER → 2021-08-22 11:45 | Outpatient (CLI) | payer OTHER, MEDICAID, SELFPAY ==
[2021-08-22 13:39] LABS: Hematocrit 32.1 % (36-46); Hemoglobin 11.1 g/dL (12.0-16.0)
[2021-08-22 15:38] LABS: GTT (PREG) 1 Hour PP 50gm Dose 120 mg/dL (76-139)
== END ==
PROVIDERS: PCP Physician Assistant; Referring Provider Obstetrics & Gynecology; Visit Provider Obstetrics & Gynecology
DX: Z34.82 Encounter for supervision of other normal pregnancy, second trimester (principal); Z3A.26 26 weeks gestation of pregnancy
CPT/HCPCS: 36415; 82950; 85014; 85018; 86850

== ENCOUNTER 2021-08-22 16:28 | Outpatient (CLI) | payer OTHER, MEDICAID, SELFPAY ==
--- NOTE | 2021-08-22 18:07 | P.TNLD_ITS ---
Visit Information Visit Information Date of evaluation: 08/22/21 Primary OB Provider: Nina York On-call OB Provider: Nina York Reason for Evaluation: Yes non-stress test non-stress test reason: other (oligohydramnios) [facility] Medical History (Updated 05/27/21 @ 16:46 by Irene Evangelista RN) Acute pharyngitis (05/07/03) Enlarged tonsils Epistaxis History of frequent ear infections in childhood Recurrent UTI (~2016) Rosacea (~2010) Smokes tobacco daily (~2003) Strep throat (05/14/03) Surgical History (Updated 05/27/21 @ 16:47 by Irene Evangelista RN) [place] teeth extracted (~2007) Family History (Updated 05/27/21 @ 16:54 by rIene Evangelista RN) Mother No problems noted. Father Diabetes mellitus Smoker Grandmother Diabetes mellitus Grandfather No problems noted. Grandmother No problems noted. Grandfather Unknown family medical history Brother Seizures Sister Seizures Sister Congenital deafness Social History marital status: unmarried,single details: FOB involved, but unsure about having a child. Coming to terms with it. number of children: 1 household members: children (Her daughter. 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 ) special erasto needs: No seatbelt use: always do you feel safe at home: Yes Smoking Status: Current every day smoker (Cut back from 10-15 cigs/day to 2 cigs/day now over last 2 weeks. Trying to quit. ) Tobacco: How many years used: 17 quit status: considering quitting second hand exposure: No alcohol intake: never substance use type: does not use during the past year weight has: remained stable well-balanced diet: daily or most days daily servings fruits/ve-4 caffeine: Yes (1 cup coffee a day. ) Type(s) of exercise: walking and normal ROM and activity (Busy job housecleaning. ) frequency: daily duration: 15-30 minutes/day Evaluation Evaluation Baseline heart rate: 140 Variability: Moderate (11-25) monitor accelerations: Present Monitor Decelerations: Variable Category of Tracing: Appropriate for gestational age Diagnosis, Plan/Disposition Plan/Disposition Plan: Assessment: 31-year-old 4 para 1 at 27 weeks gestation with oligohydramnios NST appropriate for gestational age Plan: kick counts Follow-up with Maternal- Medicine as scheduled September 01, 2021 OB Disposition: home
== END 2021-08-22 17:30 | disposition home or self-care (01) ==
LOC: OB 08-30 01:34
PROVIDERS: PCP Physician Assistant; Referring Provider Obstetrics & Gynecology; Visit Provider Obstetrics & Gynecology
DX: O41.02X0 Oligohydramnios, second trimester, not applicable or unspecified (principal); Z34.82 Encounter for supervision of other normal pregnancy, second trimester; Z3A.26 26 weeks gestation of pregnancy; Z3A.27 27 weeks gestation of pregnancy
CPT/HCPCS: 36415; 82950; 85014; 85018; 86850; G0378; G0379

== ENCOUNTER 2021-10-11 15:30 | Outpatient (CLI) | payer OTHER, MEDICAID, SELFPAY | END 2021-10-11 16:30 | disposition home or self-care (01) | LOC: OB 10-13 13:39 | PROVIDERS: PCP Physician Assistant; Referring Provider Obstetrics & Gynecology; Visit Provider Obstetrics & Gynecology | DX: Z34.83 Encounter for supervision of other normal pregnancy, third trimester (principal); Z3A.34 34 weeks gestation of pregnancy | CPT/HCPCS: 59025; G0378; G0379 ==

== ENCOUNTER 2021-10-18 15:44 | Outpatient (CLI) | payer OTHER, MEDICAID, SELFPAY | END 2021-10-18 16:12 | disposition home or self-care (01) | LOC: LABOR 15:47 → OB 10-24 09:17 | PROVIDERS: PCP Physician Assistant; Referring Provider Obstetrics & Gynecology; Visit Provider Obstetrics & Gynecology | DX: Z34.83 Encounter for supervision of other normal pregnancy, third trimester (principal); Z3A.35 35 weeks gestation of pregnancy | CPT/HCPCS: 59025; G0378; G0379 ==

== ENCOUNTER 2021-10-25 14:34 | Outpatient (CLI) | payer OTHER, MEDICAID, SELFPAY ==
--- NOTE | 2021-10-26 05:29 | P.TNLD_ITS ---
Visit Information Visit Information Date of evaluation: 10/25/21 Primary OB Provider: Nina York On-call OB Provider: Nina York Reason for Evaluation: Yes non-stress test non-stress test reason: other (Oligohydramnios) [facility] Medical History (Updated 09/25/21 @ 08:38 by Nina York MD) Acute pharyngitis (05/07/03) Enlarged tonsils Epistaxis History of frequent ear infections in childhood Recurrent UTI (~2016) Rosacea (~2010) Smokes tobacco daily (~2003) Strep throat (05/14/03) Surgical History (Updated 05/27/21 @ 16:47 by Irene Evangelista RN) [place] teeth extracted (~2007) Family History (Updated 05/27/21 @ 16:54 by Irene Evangelista, AMADO) Mother No problems noted. Father Diabetes mellitus Smoker Grandmother Diabetes mellitus Grandfather No problems noted. Grandmother No problems noted. Grandfather Unknown family medical history Brother Seizures Sister Seizures Sister Congenital deafness Social History marital status: unmarried,single details: FOB involved, but unsure about having a child. Coming to terms with it. number of children: 1 household members: children (Her daughter. 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 ) special erasto needs: No seatbelt use: always do you feel safe at home: Yes Smoking Status: Former smoker (Cut back from 10-15 cigs/day to 2 cigs/day now over last 2 weeks. Trying to quit. ) Tobacco: How many years used: 17 quit status: considering quitting second hand exposure: No alcohol intake: never substance use type: does not use during the past year weight has: remained stable well-balanced diet: daily or most days daily servings fruits/ve-4 caffeine: Yes (1 cup coffee a day. ) Type(s) of exercise: walking and normal ROM and activity (Busy job housecleaning. ) frequency: daily duration: 15-30 minutes/day Evaluation Evaluation Baseline heart rate: 135 Variability: Moderate (11-25) monitor accelerations: Present Monitor Decelerations: Absent Category of Tracing: Reactive Diagnosis, Plan/Disposition Plan/Disposition Plan: Assessment: 31-year-old at 36-,1/7 weeks gestation with oligohydramnios Reactive nonstress test Plan: Induction at 37 weeks OB Disposition: home
== END 2021-10-25 15:36 | disposition home or self-care (01) ==
LOC: OB 10-31 14:38
PROVIDERS: PCP Physician Assistant; Referring Provider Obstetrics & Gynecology; Visit Provider Obstetrics & Gynecology
DX: O41.03X0 Oligohydramnios, third trimester, not applicable or unspecified (principal); Z3A.36 36 weeks gestation of pregnancy; Z34.83 Encounter for supervision of other normal pregnancy, third trimester
CPT/HCPCS: 59025; 87653; G0378; G0379

== ENCOUNTER → 2021-10-25 15:45 | Outpatient (CLI) | payer OTHER, MEDICAID, SELFPAY ==
[2021-10-26 12:18] LABS: Strep Grp B PCR NEG for Grp B Strep
== END ==
PROVIDERS: PCP Physician Assistant; Visit Provider Obstetrics & Gynecology
DX: Z34.83 Encounter for supervision of other normal pregnancy, third trimester (principal); Z3A.36 36 weeks gestation of pregnancy
CPT/HCPCS: 87653

== ENCOUNTER 2021-10-30 18:09 | Inpatient (IN) | payer OTHER, MEDICAID, SELFPAY ==
[2021-10-30 19:10] LABS: Add Manual Diff / Slide Review NO; Basophils Absolute Auto 100 /uL (0-100); Basophils Percent Auto 0.9 % (0-2); Eosinophils Absolute Auto 100 /uL (0-450); Eosinophils Percent Auto 1.2 % (2-4); Hematocrit 34.9 % (36-46); Hemoglobin 12.1 g/dL (12.0-16.0); Lymphocytes Absolute Auto 1800 /uL (1100-4500); Lymphocytes Percent Auto 20.1 % (25-40); Mean Corpuscular HGB Conc 34.8 % (30-36); Mean Corpuscular Hemoglobin 31.3 PG (26-34); Monocytes Absolute Auto 600 /uL (0-900); Monocytes Percent Auto 6.6 % (3-14); Neutrophils Absolute Auto 6500 /uL (1500-7000); Neutrophils Percent Auto 71.2 % (50-75); Platelet Count 264 X10^3/uL (150-400); Red Blood Cell Count 3.88 X10^6/uL (4.0-5.2); White Blood Cell Count 9.1 X10^3/uL (4.5-11.0)
[2021-10-30 19:23] LABS: COVID19 -Nasal RAPID Negative (Negative)
[2021-10-30] MEDS: DINOPROSTONE VAG (CERVIDIL) 10 MG VAG (20:00)
[2021-10-30 20:18] VITALS: BP 131/71
[2021-10-31] MEDS: LACTATED RINGERS 1,000 ML 100 ML IV ×4 (05:01→22:29)
[2021-10-31] MEDS: FENT 2MCG/ML BUPIV 0.125% EPI 200 MCG/100 ML PLAST..BAG 13 MCG EPIDURAL (06:30)
[2021-10-31] MEDS: OXYTOCIN PREMIX 30 UNIT/500 ML PLAST..BAG IV (08:58)
[2021-10-31] MEDS: FENT 2MCG/ML BUPIV 0.125% EPI 200 MCG/100 ML PLAST..BAG 13.5 MCG EPIDURAL ×2 (11:51→17:28)
[2021-10-31] MEDS: FENTANYL 2 MCG EPIDURAL (20:30)
[2021-10-31] MEDS: BUPIVACAINE EPIDURAL (20:30)
--- NOTE | 2021-10-31 21:45 | P.HPOB_ITS ---
OB HPI Date/Time Date of admission: 10/30/21 Date Patient Seen: 10/31/21 Time Patient Seen: 07:40 History of Present Condition Chief complaint: INDUCTION OF LABOR SEN Calculator Estimated Delivery Date Method Current WG Current Estimate 11/21/21 LMP (Certain) 37w 0d Other Estimates 11/18/21 Ultrasound #1 37w 3d Estimated Gestational Age (weeks): 37 : 4 Para: 1 care: good care, initiated at week # (15), number of visits (8) and pounds weight gain (60) Dating criteria OB: LMP confirmed by 2nd trimester US Ultrasounds: normal mid trimester US Abnormal ultrasound findings: low fluid and enlarged renal pelvis on anatomy scan Obstetrical complications: other (oligo) Medical complications OB: none Indications Indication for induction OB: other (oligo) Preadmission Labs Last OB Lab Results: Blood Type A Negative 10/30/21 18:54 10/30/21 Antibody Screen Negative 10/30/21 18:54 10/30/21 Hematocrit 34.9 % (36-46) L 10/30/21 18:54 10/30/21 Hemoglobin 12.1 g/dL (12.0-16.0) 10/30/21 18:54 10/30/21 Hepatitis B Surface Antigen Negative s/c (NEGATIVE) 05/30/21 09:10 05/30/21 Hepatitis C Antibody Negative s/c (NEGATIVE) 05/30/21 09:10 05/30/21 Rubella Antibody 16.9 IU/mL (>15) 05/30/21 09:10 05/30/21 Varicella-Zoster IgG Antibody 1322 index (Immune >165) 05/30/21 09:10 05/30/21 Glucose 1 Hour 120 mg/dL (76-139) 08/22/21 13:05 08/22/21 Group B Streptococcus (PCR) Neg for grp b strep 10/25/21 15:45 10/25/21 -: Chlamydia screen: negative, Gonorrhea screen: negative and Urine: positive (Enterococcus) -: PAP smear: Normal Genetic Screens: Quad screen: Normal External Labs -: Urine: positive (Enterococcus) Prior (ies) Past Pregnancies Del. Date GA/Weeks Labor Lgth Wt Sex Route Outcome Anesthesia Place Delv Breastfeed Preg Comp Name 08/26/04 39.3 10 7 lb 4 oz Female vaginal live - full term ep idural IH 2 years. other Trina Mariscal Delivery Date: 08/26/04 Last Updated by: Irene Evangelista R.N. At age 13. Anemia. Spont. Labor. AROM. 5 hr second stage. Had Rhogam PP. Spinal ANNE, needed blood patch. Evaluation Evaluation Baseline heart rate: 135 Variability: Moderate (11-25) monitor accelerations: Present Monitor Decelerations: Absent Contraction Frequency (minutes): 4 Uterine Contraction Intensity: Moderate Status: Category l Dilation (cm): 1 Effacement (%): 50 station: -2 Position of cervix: mid [facility] Medical History (Updated 09/25/21 @ 08:38 by Nina York MD) Acute pharyngitis (05/07/03) Enlarged tonsils Epistaxis History of frequent ear infections in childhood Recurrent UTI (~2016) Rosacea (~2010) Smokes tobacco daily (~2003) Strep throat (05/14/03) Surgical History (Updated 05/27/21 @ 16:47 by Irene Evangelista RN) [place] teeth extracted (~2007) Family History (Updated 05/27/21 @ 16:54 by Irene Evangelista RN) Mother No problems noted. Father Diabetes mellitus Smoker Grandmother Diabetes mellitus Grandfather No problems noted. Grandmother No problems noted. Grandfather Unknown family medical history Brother Seizures Sister Seizures Sister Congenital deafness Social History marital status: unmarried,single details: FOB involved, but unsure about having a child. Coming to terms with it. number of children: 1 household members: children (Her daughter. 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 ) special erasto needs: No seatbelt use: always do you feel safe at home: Yes Smoking Status: Former smoker Tobacco: How many years used: 17 quit status: considering quitting second hand exposure: No alcohol intake: never substance use type: does not use during the past year weight has: remained stable well-balanced diet: daily or most days daily servings fruits/ve-4 caffeine: Yes (1 cup coffee a day. ) Type(s) of exercise: walking and normal ROM and activity (Busy job housecleaning. ) frequency: daily duration: 15-30 minutes/day Meds Home Medications and Allergies Home Medications Medication Instructions Recorded Confirmed Type prenat.vits,romero,sra-[id number] 1 tab PO DAILY 05/27/21 10/31/21 History Allergies Allergy/AdvReac Type Severity Reaction Status Date / Time amoxicillin Allergy Severe assumed Verified 10/25/21 15:44 nitrofurantoin Allergy Severe Blisters/Hives Verified 10/25/21 15:44 [From Macrobid] on Lips/Mouth Penicillins Allergy Severe Hives in Verified 10/25/21 15:44 throat, mouth/ swelling clindamycin AdvReac Intermediate GI upset Verified 10/25/21 15:44 erythromycin base AdvReac Intermediate GI upset Verified 10/25/21 15:44 SULFA (sulfonamide) Allergy Unknown Uncoded 10/25/21 15:44 OB Exam Narrative Exam Narrative: General: Patient somewhat comfortable with epidural Lungs: Clear to auscultation bilaterally Cardiovascular: Regular rate and rhythm Fundal height: 37 cm Estimated weight: 7 lb Extremities: No edema, 1+ DTR's Objective Labs Result Diagrams: 10/30/21 18:54 Assessment and Plan Assessment and Plan Assessment and Plan narrative: Assessment: 31-year-old 4 para 1 at 37 weeks gestation with oligohydramnios status post Cervidil and epidural Plan: Pitocin per protocol 2 Artificial rupture of membranes when able Expected management to spontaneous vaginal delivery Time Spent with Patient Total time spent with greater than 50% in coordination of care (as documented) at patient's floor/unit and/or counseling patient:: 15-24 minutes
--- NOTE | 2021-10-31 21:50 | PM.OBPNLAB ---
Date/Time Date Patient Seen: 10/31/21 Time Patient Seen: 13:10 Pain Control Pain control: epidural Pelvic Exam Dilation (cm): 2 Effacement (%): 85 station: -1 Contractions Contractions on admission: none Monitor mode: External Pitocin rate (mU/min): 15 Contraction frequency (min): 3 Contraction duration (min): 1 Contraction pattern: Regular Contraction intensity: Moderate Status status: Category l Heart Rate Baseline: 140 Monitor Accelerations: Present Monitor Decelerations: Absent Monitor Variability: Moderate Assessment and Plan Assessment: induction ongoing Plan: other Comments: AROM with slightly bloody fluid Expectant management to
--- NOTE | 2021-10-31 21:52 | PM.OBPNLAB ---
Date/Time Date Patient Seen: 10/31/21 Time Patient Seen: 16:15 Pain Control Pain control: epidural Pelvic Exam Dilation (cm): 3 Effacement (%): 90 station: 0 Amniotic membrane status: Ruptured Contractions Contractions on admission: none Monitor mode: External Pitocin rate (mU/min): 27 Contraction frequency (min): 3 Contraction duration (min): 1 Contraction pattern: Regular Contraction intensity: Strong/Firm Status status: Category l Heart Rate Baseline: 145 Monitor Accelerations: Present Monitor Decelerations: Absent Monitor Variability: Moderate Assessment and Plan Assessment: active labor Plan: continuous present management
--- NOTE | 2021-10-31 21:53 | PM.OBPNLAB ---
Date/Time Date Patient Seen: 10/31/21 Time Patient Seen: 21:54 Pain Control Pain control: epidural (Pt not tolerating contractions) Pelvic Exam Dilation (cm): 8 Effacement (%): 100 station: +1 Amniotic membrane status: Ruptured Contractions Contractions on admission: none Monitor mode: External Pitocin rate (mU/min): 24 Contraction frequency (min): 3 Contraction duration (min): 1 Contraction pattern: Regular Contraction intensity: Strong/Firm Status status: Category l Heart Rate Baseline: 140 Monitor Accelerations: Present Monitor Decelerations: Absent Monitor Variability: Moderate Comments: Some vaginal bleeding Assessment and Plan Assessment: active labor Plan: continuous present management Comments: Epidural bolus
[2021-11-01] MEDS: ACETAMINOPHEN 325 MG TABLET 650 MG PO (01:30)
--- NOTE | 2021-11-01 02:19 | P.PCNOB_ITS ---
Events: Labor Induction and Low Fluid Volume in Sac Labor & Delivery Delivery date: 11/01/21 Intrapartal Events: Ineffective Pushing, Prolonged Latent Phase, Bleeding, Extended Tachycardia and Anesthetic Complications (Epidural not adequate for pain management) Cervical ripening method: per Cervidil protocol Induction method: per pitocin protocol Delivery augmentation: rupture of membranes Delivery monitor: external FHT and external uterine Route of delivery: forceps (Laufe) Indication for instrumentation: nonreassuring FHR tracing (Extended tachycardia) Episiotomy description: None L&D Laceration Description: Vaginal - 1st Degree (Bilateral vaginal wall and left labia minora) Delivery repair: vicryl and chromic Estimated blood loss (mL): 100 Anesthesia Type: Epidural Complications: Inadequate pain control Narrative: Patient complete and pushed for 1 hour and 25 minutes. Due to poor maternal pushing efforts and refusal to push further, a vacuum was applied. With 1 pull the head did not move very much and there were variable decelerations. A decision was made to use forceps. Loud forceps were applied without difficulty. With 1 contraction the vertex delivered over an intact perineum at 1:55 a.m.. A nuchal cord x1 was reduced on the perineum. The remainder of the body deli ciera without difficulty and was placed on mom's abdomen. Due to no significant effort to breathe, the cord was double clamped and cut and the infant was taken over to the warmer to RN and RT. A piece of cord was taken for cord pH. Cord bloods were obtained. Pitocin was given in the IV fluids. placenta delivered intact with a three-vessel cord at 2:05 a.m.. The fundus was massaged to firm. Bilateral first-degree vaginal sidewall lacerations were repaired with 2 0 Vicryl, and at the level of the labia with 3-0 chromic in the usual fashion. Hemostasis was achieved. Estimated blood loss 100 cc. Apgars 5 at 1 minute and 7 at 5 minutes. . Epidural. Mom and infant stable to recovery. Cord bloods. Venous 7.319. Arterial 7.320. Baby 1: gender: Male Presentation: vertex Position: Right Occiput Anterior Placenta delivery description: Spontaneous Cord Vessel Description: 3 Vessels, Nuchal Cord (x1, loose), Loose and Reduced score (1 min): 5 score (5 min): 7 weight: 6 lb 11.7 oz Plan for aftercare: Routine care
[2021-11-01] MEDS: IBUPROFEN 600 MG TABLET PO ×3 (04:51→20:11)
--- NOTE | 2021-11-01 17:41 | P.PNOB_ITS ---
Subjective - OB Subjective Patient comments: no complaints [place] baby status: doing well and nursing well [place] feeding status: exclusively breast feeding Date Patient Seen: 11/01/21 Time Patient Seen: 17:41 Exam Narrative Exam Narrative: Generally: Patient standing NAD Fundus: Firm at U/-1 Ext: Neg Moe's, no edema Objective Labs Result Diagrams: 10/30/21 18:54 Assessment & Plan Plan day: 1 plan OB: routine care Time Spent With Patient Time: Total time spent is greater than 50% in coordination of care (as documented) at patient's floor/unit and/or counseling patient: Time with patient: less than 15 minutes
[2021-11-02] MEDS: IBUPROFEN 600 MG TABLET PO ×2 (06:39→12:39)
[2021-11-02] MEDS: PRENATAL VIT,CALC/IRON/FOLIC 1 TABLET 1 TAB PO (09:31)
[2021-11-02] MEDS: DOCUSATE 100 MG CAPSULE PO (09:32)
[2021-11-02] MEDS: ACETAMINOPHEN 325 MG TABLET 650 MG PO (12:39)
[2021-11-02 13:14] VITALS: BP 136/84; PULSE 99; RESP 16; TEMP 36.6
--- NOTE | 2021-11-10 22:13 | P.DS_ITS ---
Discharge Providers Provider Date of admission: 10/30/21 18:09 Discharge Date: 11/02/21 Primary care physician: Lashell Pearl PA-C Consults: 11/02/21 02:22 Consult to [employer] Routine Comment: Discharge provider: Nina York MD Summary Hospital Course Date Patient Seen: 11/02/21 Time Patient Seen: 13:30 Diagnoses: 37 weeks gestation Oligohydramnios Cervidil cervical ripening Induction of labor Epidural analgesia Outlet forceps assisted delivery First degree vaginal laceration and repair Hospital Course: Patient is a 31 year old who presented on 10/30/21 for an induction of labor at 37 wks due to oligohydramnios. She had Cervidil placed on the evening of 10/30/21. She received an epidural overnight due to painful contractions. On the morning of 10/31/21, she was started on Pitocin. She had an artificial rupture of membranes. She progressed to complete dilation on 11/01/21. She had inadequate pain management and had epidural replaced and several boluses. Laufe forceps were placed after the pt had been pushing for 1 1/2 hours and vertex was at +2 station. Pt had inadequate pushing efforts. She underwent the forceps delivery without complication. A vaginal repair was done of first degree vaginal lacerations. Her course was unremarkable and she was discharged to home on 11/02/21. Peripartum Data Infant Delivery Method: Assisted Delivery (Laufe forceps) Laceration Description: Vaginal - 1st Degree Episiotomy description: None Procedures: Cervidil cervical ripening Pitocin induction of labor Epidural analgesia Artificial rupture of membranes Outlet forecps assisted delivery First degree vaginal laceration repair complications: none 1: Gender: Male Disposition of : home Status at Discharge Cognitive/behavioral status at discharge: oriented Functional status at discharge: independent ambulation Overall status at discharge: patient is progressing back to baseline Time Spent with Patient Time attestation: Total time spent providing and/or coordinating discharge services: Time spent: Less than 30 minutes Objective Labs Result Diagrams: 10/30/21 18:54 Exam Narrative Exam Narrative: Generally: Walking around in room, no acute distress Fundus: Firm U-1 Ext: No edema, negative Moe's Discharge Plan Discharge Plan Patient Disposition: Home Provider Discharge Comment: Call with fever, chills or bleeding vaginally more than a pad in an hour Ibuprofen 600mg every 6 hours as needed for cramping Tylenol 650mg every 6 hours as needed Discharge orders & Medications Prescriptions: Continued prenat.vits,romero,[id number] Tablet 1 tab PO DAILY 0RF Follow up/Referrals: Nina York MD [Physician] - 6 Weeks (You follow up appointment is scheduled with Dr. York for December 21 @8:30am.) Diet/Activity/Treatments Diet: Regular Activity: Nothing in the vagina Skin/Wound/Dressing Care Report to your healthcare provider any signs of infection, such as:: chills, fever, increased pain, unusual drainage and unusual redness Visit Report/Discharge Packet Instructions: DI for Labor and Delivery, Vaginal Stand Alone Forms: Discharge: Care Discharge Data Primary Care Provider: Lashell Pearl
== END 2021-11-02 14:00 | disposition home or self-care (01) | DRG 560 ==
PROVIDERS: Admitting Provider Obstetrics & Gynecology; PCP Physician Assistant; Referring Provider Obstetrics & Gynecology; Visit Provider Obstetrics & Gynecology
DX: O41.03X0 Oligohydramnios, third trimester, not applicable or unspecified (principal); O62.0 Primary inadequate contractions; Z3A.37 37 weeks gestation of pregnancy; Z37.0 Single live birth; O70.0 First degree perineal laceration during delivery; O76 Abnormality in fetal heart rate and rhythm complicating labor and delivery; Z20.822 Contact with and (suspected) exposure to COVID-19
CPT/HCPCS: 01967; 36415; 59050; 59409; 85025; 86850; 86900; 86901; 87635; C9803; G0379; J2590